=== PATIENT | female | born 1995 | race Two or more races ===

== ENCOUNTER 2021-02-05 06:49 | Outpatient (CLI) | payer OTHER | END 2021-02-05 07:57 | disposition home or self-care (01) | LOC: NST 06:49 | PROVIDERS: ATTEND Obstetrics & Gynecology | DX: Z34.83 Encounter for supervision of other normal pregnancy, third trimester (principal) ==

== ENCOUNTER 2021-02-09 09:01 | Inpatient (IN) | payer OTHER ==
[~2021-02-09] VITALS: Ht 162.6 cm; Wt 3.2 kg
[2021-02-09] MEDS ORDERED: PROFERRIN-FORT1 EACH PO (09:35)
[2021-02-09] MEDS ORDERED: ST. JOSEPH ASPI81 M2 PO (09:35)
[2021-02-09] MEDS ORDERED: CONCEPT DHA CA1 EACH PO (09:36)
== END 2021-02-12 16:28 | disposition home or self-care (01) | DRG 788 ==
LOC: O/R 09:01 → LDR 09:01 → O/R 10:55 → OB/GYN 13:48
PROVIDERS: ADMIT Obstetrics & Gynecology; ATTEND Obstetrics & Gynecology
PROC: 4A1HXFZ Monitoring of Products of Conception, Cardiac Rhythm, External Approach (ICD-10-PCS; 2021-02-09)
PROC: 10D00Z1 Extraction of Products of Conception, Low, Open Approach (ICD-10-PCS; principal; 2021-02-09 10:00)
DX: O64.1XX0 Obstructed labor due to breech presentation, not applicable or unspecified (principal); Z37.0 Single live birth; Z3A.39 39 weeks gestation of pregnancy